=== PATIENT | female | born 1950 | race Caucasian/White ===

== ENCOUNTER 2018-01-24 08:14 | Emergency (ER) | payer OTHER ==
[~2018-01-24] VITALS: Ht 162.6 cm; Wt 68.2 kg
[2018-01-24] MEDS ORDERED: HYDR-309 PO (08:26)
[2018-01-24] MEDS ORDERED: MELO-107 PO (08:27)
[2018-01-24 08:59] LABS: BASOPHILS % (AUTO) 0.5 % (0.0-2.0); EOSINOPHILS % (AUTO) 0.9 % (1.0-6.0); HEMATOCRIT 24.4 % (36-46); HEMOGLOBIN 8.1 g/dL (12.0-16.0); LYMPHOCYTES # (AUTO) 0.4 K/uL (1.0-4.8); LYMPHOCYTES % (AUTO) 8.4 % (22.0-44.0); MEAN CORPUSCULAR HEMOGLOBIN 26.7 pg (26.0-34.0); MEAN CORPUSCULAR HGB CONC 33.3 G/dL (31.0-37.0); MEAN CORPUSCULAR VOLUME 80 fL (80-100); MONOCYTES # (AUTO) 0.3 K/uL (0.1-1.0); MONOCYTES % (AUTO) 5.9 % (2.0-9.0); NEUTROPHILS # (AUTO) 4.1 K/uL (1.8-7.7); NEUTROPHILS % (AUTO) 84.3 % (40.0-70.0); PLATELET COUNT (AUTO) 105 K/uL (150-450); RED BLOOD CELL COUNT(AUTO) 3.05 MIL/uL (4.00-5.20); RED CELL DISTRIBUTION WIDTH 16.6 % (11.5-14.5)
[2018-01-24 09:15] LABS: ANION GAP 9 mmol/L (8-16); CALCIUM, TOTAL 8.4 mg/dL (8.8-10.5); CARBON DIOXIDE 24 mmol/L (22-29); CHLORIDE 107 mmol/L (98-107); CREATININE 0.79 mg/dL (0.60-1.30); GLOMERULAR FILTR. RATE CALC > 60 mL/min (>60); GLUCOSE,RANDOM 201 mg/dL (70-110); POTASSIUM 3.7 mmol/L (3.5-5.1); SODIUM SERUM 140 mmol/L (136-145); UREA NITROGEN, BLOOD 18 mg/dL (7-18)
[2018-01-24 09:22] LABS: ACETAMINOPHEN 39 mcg/mL (10-30); ALANINE AMINOTRANSFERASE 24 U/L (12-78); ALKALINE PHOSPHATASE 247 U/L (46-116); ASPARTATE AMINOTRANSFERASE 15 U/L (15-37); BILIRUBIN,TOTAL 0.5 mg/dL (0.1-1.0); TOTAL PROTEIN, SERUM 6.2 g/dL (6.4-8.2)
[2018-01-24 09:24] LABS: SALICYLATE 1.9 mg/dL (2.8-20.0)
[2018-01-24] MEDS ORDERED: ACETYLCYSTEINE 10% 100 MG/ML 30 ML ORAL SOLUTION PO ONE (10:00)
[2018-01-24] MEDS ORDERED: ACETYLCYSTEINE 20% 200 MG/ML 30 ML ORAL SOLUTION PO ONE (10:00)
[2018-01-24 10:02] LABS: PROTHROMBIN TIME 10.7 SEC (9.4-11.6)
[2018-01-24] MEDS ORDERED: ACETYLCYSTEINE IV ONE ×2 (10:15→12:00)
[2018-01-24] MEDS ORDERED: WATER IV ONE ×2 (10:15→12:00)
[2018-01-24] MEDS ORDERED: DEXTROSE 5% IV ONE ×2 (10:15→12:00)
[2018-01-24] MEDS ORDERED: ONDANSETRON HCL 4 MG/2 ML VIAL IVP ONE ×2 (10:45)
[2018-01-24 11:03] LABS: AMPHET/METH SCREEN,URINE NEGATIVE (NEGATIVE); BARBITURATE SCREEN, URINE NEGATIVE (NEGATIVE); BENZODIAZEPINES SCREEN,URINE NEGATIVE (NEGATIVE); CANNABINOID SCREEN,URINE POSITIVE (NEGATIVE); COCAINE SCREEN,URINE NEGATIVE (NEGATIVE); METHADONE SCREEN, URINE NEGATIVE (NEGATIVE); OPIATE SCREEN,URINE POSITIVE (NEGATIVE)
[2018-01-24 11:14] LABS: PHENCYCLIDINE SCREEN,URINE NEGATIVE (NEGATIVE)
[2018-01-24 13:37] VITALS: BP 165/89
== END 2018-01-24 14:00 | disposition short-term general hospital (02) ==
LOC: EMS 08:16
DX: T39.1X1A Poisoning by 4-Aminophenol derivatives, accidental (unintentional), initial encounter (principal); F32.9 Major depressive disorder, single episode, unspecified; D64.9 Anemia, unspecified; F12.90 Cannabis use, unspecified, uncomplicated; Z88.8 Allergy status to other drugs, medicaments and biological substances; Y92.89 Other specified places as the place of occurrence of the external cause
CPT/HCPCS: 36415; 80053; 80307; 85025; 85610; 96365; 96366; 99285; G0480 ×2; G0481; J0132; J7060 ×2; J2405